=== PATIENT | female | born 1995 | race Caucasian/White ===

== ENCOUNTER 2021-07-26 21:05 | Emergency (ER) | payer OTHER ==
[~2021-07-26] VITALS: Ht 170.2 cm; Wt 62.1 kg
--- NOTE | 2021-07-26 22:20 | NUR ---
Dr. Daily at bedside for MSE.
[2021-07-26 23:09] LABS: CARBON DIOXIDE 30 mmol/L (21-32); CHLORIDE 104 mmol/L (98-107); CREATININE 0.7 mg/dL (0.6-1.3); GLUCOSE 107 mg/dL (74-106); HEMATOCRIT 37.4 % (31.2-41.9); MEAN CORPUSCULAR VOLUME 88.5 fL (75.5-95.3); PLATELET COUNT (AUTO) 354 K/uL (179-408); POTASSIUM 3.7 mmol/L (3.5-5.1); UREA NITROGEN, BLOOD 14 mg/dL (7-18)
[2021-07-26 23:24] LABS: ALANINE AMINOTRANSFERASE 20 U/L (14-59); ALKALINE PHOSPHATASE 61 U/L (50-136); ASPARTATE AMINOTRANSFERASE 11 U/L (15-37); BILIRUBIN,TOTAL 0.2 mg/dL (0.2-1.0); TOTAL PROTEIN, SERUM 7.2 g/dL (6.4-8.2)
[2021-07-26 23:34] LABS: BILIRUBIN,DIRECT < 0.1 mg/dL (0.0-0.2)
[2021-07-27] MEDS ORDERED: CHOLECALCIFEROL 1,000 UNIT TABLET ONE (00:14)
[2021-07-27] MEDS: CHOLECALCIFEROL 1,000 UNIT TABLET PO SCH ×2 (00:17→00:26)
[2021-07-27] MEDS ORDERED: CHOL3000 PO (00:18)
[2021-07-27] MEDS ORDERED: CYANOCOBALAMIN 1000 MCG/ML VIAL ONE (00:22)
--- NOTE | 2021-07-27 00:26 | NUR ---
Patient given written and verbal discharge instructions. Patient verbalizes understanding of instructions. Patient is ambulatory with steady gait. Refuses offer of [facility] placement. Patient given list of available shelters in surrounding area. Pt provided with food and shoes per patient request, no acute signs of distress, VSS, all belongings taken, refuses all other services at this time.
[2021-07-27 00:28] VITALS: BP 141/94
[2021-07-27] MEDS ORDERED: CYANOCOBALAMIN 1000 MCG/ML VIAL IM ONE (00:30)
== END 2021-07-27 00:28 | disposition home or self-care (01) ==
LOC: ER 21:05
DX: E55.9 Vitamin D deficiency, unspecified (principal); Z59.02 Unsheltered homelessness; F31.9 Bipolar disorder, unspecified; Z91.120 Patient's intentional underdosing of medication regimen due to financial hardship
CPT/HCPCS: 36415; 80048; 80076; 82607; 85025; 96372; 99283; J3420